=== PATIENT | male | born 1965 | race Caucasian/White ===

== ENCOUNTER 2023-01-06 18:13 | Observation (INO) | payer OTHER ==
[~2023-01-06] VITALS: Ht 170.2 cm; Wt 86.2 kg
[2023-01-06] MEDS ORDERED: LIDOCAINE HCL/EPINEPHRINE 1%-EPI 1:100,000 20 ML VIAL INFIL ONE (19:45)
[2023-01-06] MEDS ORDERED: BACITRACIN ZINC OINT UDPKT TOP ONE (19:45)
[2023-01-06] MEDS ORDERED: VANCOMYCIN 1G PREMIX 200 ML IV ONE (19:45)
[2023-01-06] MEDS ORDERED: SODIUM CHLORIDE 0.9% 1000ML BAG (SEPSIS BOLUS) IV ONE (19:45)
[2023-01-06] MEDS ORDERED: LIDOCAINE HCL/PF 1% 10 MG/ML 5ML VIAL INFIL ONE (19:45)
[2023-01-06] MEDS ORDERED: CEFTRIAXONE 1GM PREMIX 50 ML IV ONE (19:45)
[2023-01-06 20:25] LABS: HEMATOCRIT. 38.6 % (42.0-52.0); HEMOGLOBIN. 13.2 g/dL (14.0-18.0); MEAN CORPUSCULAR HEMOGLOBIN 34.8 pg (28.0-32.0); MEAN CORPUSCULAR VOLUME 101.7 fL (80.0-94.0); MEAN PLATELET VOLUME 9.6 fl (7.4-10.4); PLATELET 99 x1000/uL (130-400); RED BLOOD CELL COUNT 3.79 mill/uL (4.7-6.1); RED CELL DISTRIBUTION WIDTH 14.2 % (11.6-14.6)
[2023-01-06 20:33] LABS: CHLORIDE 104 mEq/L (98-107)
[2023-01-06 20:42] LABS: ETHANOL BLOOD < 10 mg/dL (-10)
[2023-01-06] MEDS ORDERED: AZITHROMYCIN 500MG/250ML 250 ML IV ONE (21:15)
[2023-01-06] MEDS ORDERED: CLONIDINE 0.1MG TABLET PO PRN (22:15)
[2023-01-06] MEDS ORDERED: ACETAMINOPHEN 325MG TABLET PO PRN ×2 (22:15)
[2023-01-06] MEDS ORDERED: CEFTRIAXONE 1GM PREMIX 50 ML IV NR (22:15)
[2023-01-06] MEDS ORDERED: ONDANSETRON HCL 4MG/2ML INJ IV PRN (22:15)
[2023-01-06] MEDS ORDERED: HYDROCODONE/ACETAMINOPHEN 5/325MG TABLET PO PRN (22:15)
[2023-01-06] MEDS ORDERED: MAGNESIUM/ALUMINUM HYDROXIDE/SIMETHICONE 30ML UDC PO PRN (22:15)
[2023-01-06] MEDS ORDERED: DOCUSATE SODIUM 100MG CAPSULE PO PRN (22:15)
[2023-01-06] MEDS ORDERED: GUAIFENESIN 200MG/10ML SUGAR FREE UDC PO PRN (22:15)
[2023-01-06] MEDS ORDERED: IPRATROPIUM/ALBUTEROL 0.5-3(2.5)MG/3ML NEB HHN PRN (22:15)
[2023-01-06 22:25] LABS: PLATELET ESTIMATE DECREASED
[2023-01-06] MEDS ORDERED: DEXTROSE 50% WATER 50ML SYRINGE IV PRN (22:30)
[2023-01-06 22:48] LABS: TOTAL IRON BINDING CAPACITY 325 ug/dL (250-450)
[2023-01-06 23:16] LABS: FOLIC ACID (FOLATE) SERUM 18.9 ng/mL (>5.38)
[2023-01-06] MEDS ORDERED: PIPERACILLIN/TAZ 3.375G PREMIX 50 ML IV SCH (23:30)
[2023-01-07 01:24] VITALS: BP 122/81; PULSE 75; RESP 18; TEMP 97.2
[2023-01-07] MEDS: DEXT 5%/0.9% NACL 1,000 ML IV SCH ×3 (01:57→18:15)
[2023-01-07 04:00] VITALS: BP 92/60; PULSE 70; RESP 18; TEMP 97.9
[2023-01-07] MEDS: PIPERACILLIN/TAZOBACTAM 3.375G in DEXT 5% WATER 50ML IV SCH ×3 (05:50→23:01)
[2023-01-07 06:26] LABS: HEMATOCRIT. 38.6 % (42.0-52.0); HEMOGLOBIN. 13.5 g/dL (14.0-18.0); MEAN CORPUSCULAR HEMOGLOBIN 35.4 pg (28.0-32.0); MEAN CORPUSCULAR VOLUME 101.2 fL (80.0-94.0); MEAN PLATELET VOLUME 9.7 fl (7.4-10.4); PLATELET 88 x1000/uL (130-400); RED BLOOD CELL COUNT 3.81 mill/uL (4.7-6.1)
[2023-01-07] MEDS ORDERED: Promethazine (06:32)
[2023-01-07] MEDS ORDERED: TRAZ300T11 PO (06:37)
[2023-01-07] MEDS ORDERED: DIVA500T3 PO (06:37)
[2023-01-07] MEDS ORDERED: CLON0.5T PO (06:37)
[2023-01-07] MEDS ORDERED: PALI9TAB PO (06:37)
[2023-01-07] MEDS ORDERED: ESCI10TA PO (06:37)
[2023-01-07] MEDS ORDERED: BENZ1TAB79 PO (06:37)
[2023-01-07 06:45] LABS: CHLORIDE 105 mEq/L (98-107); HDL CHOLESTEROL 24 mg/dL (40-59); LDL CHOLESTEROL 63 mg/dL (5-100); T4 FREE 1.26 ng/dL (0.76-1.46)
[2023-01-07] MEDS: BLOOD SUGAR DIAGNOSTIC STRIP TEST SCH ×4 (07:17→21:00)
[2023-01-07 08:00] VITALS: BP 122/77; PULSE 68; RESP 18; TEMP 97.5
[2023-01-07] MEDS: INSULIN LISPRO 100 UNITS/ML SUBCUT SCH ×4 (08:10→21:00)
[2023-01-07] MEDS ORDERED: CEPH500C2 PO (08:12)
[2023-01-07] MEDS ORDERED: QUET50TA PO (08:13)
[2023-01-07] MEDS ORDERED: SULFAMETHOXAZOLE (08:31)
[2023-01-07] MEDS ORDERED: clotrimazole 1% (08:31)
[2023-01-07] MEDS ORDERED: OYSTER CALCIUM (08:31)
[2023-01-07] MEDS ORDERED: PALIPERIDONE (08:31)
[2023-01-07] MEDS ORDERED: DIVA-75 PO (08:31)
[2023-01-07] MEDS ORDERED: VITA250012 PO (08:31)
[2023-01-07] MEDS ORDERED: VANCOMYCIN 1G PREMIX 200 ML IV SCH (09:00)
[2023-01-07] MEDS: PANTOPRAZOLE SODIUM 40 MG/VIAL IV SCH (09:19)
[2023-01-07] MEDS: FUROSEMIDE 40MG/4ML VIAL IV SCH ×2 (09:21→17:05)
[2023-01-07] MEDS: AMLODIPINE 5MG TABLET PO SCH (09:22)
[2023-01-07] MEDS: ENOXAPARIN 40MG/0.4ML SYR SUBCUT SCH (09:24)
[2023-01-07] MEDS ORDERED: VANCOMYCIN 750MG PREMIX 150 ML IV SCH (10:00)
[2023-01-07] MEDS ORDERED: DIVALPROEX SODIUM 500MG DR TABLET PO SCH (10:30)
[2023-01-07] MEDS ORDERED: BENZTROPINE MESYLATE 1MG TABLET PO SCH (10:30)
[2023-01-07] MEDS ORDERED: CLONAZEPAM 0.5MG TABLET PO SCH (10:30)
[2023-01-07] MEDS ORDERED: QUETIAPINE FUMARATE 50MG TABLET PO SCH ×2 (10:30→22:00)
[2023-01-07] MEDS ORDERED: CITALOPRAM HYDROBROMIDE 10MG TABLET PO SCH (10:30)
[2023-01-07] MEDS ORDERED: NALOXONE HCL 0.4MG/ML VIAL IV PRN (10:45)
[2023-01-07 12:00] VITALS: BP 127/78; PULSE 63; RESP 18; TEMP 98.1
[2023-01-07] MEDS: CITALOPRAM HYDROBROMIDE 10MG TABLET PO SCH (14:04)
[2023-01-07] MEDS: BENZTROPINE MESYLATE 1MG TABLET PO SCH (14:04)
[2023-01-07] MEDS: VANCOMYCIN 1.25GM PMX (XELLIA) 250 ML IV SCH ×2 (14:04→22:53)
[2023-01-07 16:00] VITALS: BP 131/69; PULSE 69; RESP 16; TEMP 97.5
[2023-01-07 20:00] VITALS: BP 106/71; PULSE 75; RESP 20; TEMP 97.7
[2023-01-07] MEDS ORDERED: TRAZODONE HCL 50MG TABLET PO SCH (21:00)
[2023-01-07] MEDS: DIVALPROEX SODIUM 500MG DR TABLET PO SCH (22:59)
[2023-01-07] MEDS: CLONAZEPAM 0.5MG TABLET PO SCH (23:01)
[2023-01-08] VITALS: BP 126/82; PULSE 70; RESP 20; TEMP 97.8
[2023-01-08 03:46] LABS: PLATELET ESTIMATE DECREASED
[2023-01-08 04:00] VITALS: BP 122/81; PULSE 81; RESP 22; TEMP 97.2
[2023-01-08] MEDS: DEXT 5%/0.9% NACL 1,000 ML IV SCH (04:55)
[2023-01-08 06:30] LABS: CHLORIDE 102 mEq/L (98-107)
[2023-01-08 06:43] LABS: HEMATOCRIT. 43.4 % (42.0-52.0); HEMOGLOBIN. 14.9 g/dL (14.0-18.0); MEAN CORPUSCULAR HEMOGLOBIN 34.9 pg (28.0-32.0); MEAN CORPUSCULAR VOLUME 101.8 fL (80.0-94.0); MEAN PLATELET VOLUME 9.8 fl (7.4-10.4); PLATELET 109 x1000/uL (130-400); RED BLOOD CELL COUNT 4.26 mill/uL (4.7-6.1); RED CELL DISTRIBUTION WIDTH 13.7 % (11.6-14.6)
[2023-01-08] MEDS: PIPERACILLIN/TAZOBACTAM 3.375G in DEXT 5% WATER 50ML IV SCH ×2 (06:55→14:11)
[2023-01-08] MEDS: BLOOD SUGAR DIAGNOSTIC STRIP TEST SCH ×2 (07:40→13:19)
[2023-01-08] MEDS: INSULIN LISPRO 100 UNITS/ML SUBCUT SCH ×2 (08:10→11:45)
[2023-01-08 12:00] VITALS: BP 136/90; PULSE 80; RESP 19; TEMP 97.8
[2023-01-08] MEDS: FUROSEMIDE 40MG/4ML VIAL IV SCH (13:26)
[2023-01-08] MEDS: ENOXAPARIN 40MG/0.4ML SYR SUBCUT SCH (13:26)
[2023-01-08] MEDS: PANTOPRAZOLE SODIUM 40 MG/VIAL IV SCH ×2 (13:26→13:59)
[2023-01-08] MEDS: AMLODIPINE 5MG TABLET PO SCH (13:31)
[2023-01-08] MEDS: DIVALPROEX SODIUM 500MG DR TABLET PO SCH (13:31)
[2023-01-08] MEDS: CITALOPRAM HYDROBROMIDE 10MG TABLET PO SCH (13:31)
[2023-01-08] MEDS: BENZTROPINE MESYLATE 1MG TABLET PO SCH (13:31)
[2023-01-08] MEDS: CLONAZEPAM 0.5MG TABLET PO SCH (13:32)
[2023-01-08 16:06] VITALS: BP 130/66; PULSE 70; TEMP 97.7; O2SAT 98
[2023-01-08 16:30] LABS: PLATELET ESTIMATE SLIGHTLY DECREASED
[2023-01-08] MEDS ORDERED: VANCOMYCIN 1.25GM PMX (XELLIA) 250 ML IV SCH (23:00)
== END 2023-01-08 16:25 | disposition still patient (30) ==
LOC: ER 18:13 → 4WST 21:17 → INTOOBSV 21:17 → UNDOADMOB 21:17 → 7WST 21:17 → CVICU 01-08 09:00 → 4WST 01-08 10:34
PROVIDERS: ADMIT Hospitalist; ATTEND Hospitalist
DX: R53.1 Weakness (principal); Z20.822 Contact with and (suspected) exposure to COVID-19; L02.212 Cutaneous abscess of back [any part, except buttock and flank]; I10 Essential (primary) hypertension; E46 Unspecified protein-calorie malnutrition; E87.1 Hypo-osmolality and hyponatremia; D64.9 Anemia, unspecified; D69.6 Thrombocytopenia, unspecified; E44.1 Mild protein-calorie malnutrition; I67.82 Cerebral ischemia; J84.9 Interstitial pulmonary disease, unspecified; F17.200 Nicotine dependence, unspecified, uncomplicated; F79 Unspecified intellectual disabilities; E11.9 Type 2 diabetes mellitus without complications; R74.01 Elevation of levels of liver transaminase levels; R41.82 Altered mental status, unspecified; Z68.29 Body mass index [BMI] 29.0-29.9, adult; Z79.899 Other long term (current) drug therapy; Z98.890 Other specified postprocedural states
CPT/HCPCS: 80053 ×3; 80320; 82607; 82728; 82746; 83036; 83880; 83540; 83550; 83605; 85025 ×3; 86850; 86900; 86901; 87040; 84484; 36415 ×3; 84145; 71045; 70450; 93970; 93005; 99285; 87426; 96365 ×2; 96366 ×3; 96367 ×2; 96368; 80061; 82140; 82962 ×2; 84439; 84443; 93306; 97162; 97116; 96372 ×2; 96375; 96376 ×2; 96361; 80202; J0456; J0696; J3490 ×2; J3370 ×2; J7030; G0378 ×4; C9803; J1650 ×2; J1940 ×2; C9113 ×2; J2543 ×2; J7060 ×2; C1893; G0480